=== PATIENT | female | born 1965 | race American Indian/Alaskan Native ===

== ENCOUNTER 2018-02-07 12:14 | Emergency (ER) | payer OTHER ==
[2018-02-07 12:49] VITALS: O2SAT 98
[2018-02-07 12:50] VITALS: BMI 27.4
[2018-02-07 13:35] VITALS: RESP 18
[2018-02-07] MEDS ORDERED: Tdap Vaccine 0.5 ml Vial (10-64 yrs) IM ONE ×2 (13:39→13:43)
[2018-02-07] MEDS ORDERED: PROPARACAINE/FLUORESCEIN SOD 100 DROP/5 ML BOTTLE OD STA (13:47)
[2018-02-07] MEDS ORDERED: PROPARACAINE/FLUORESCEIN SOD 100 DROP/5 ML BOTTLE ONE (14:01)
--- NOTE | 2018-02-07 14:53 | ED PDOC ---
HPI: Eye Injury/Pain Time Seen by Provider: 02/07/18 13:14 Chief Complaint (Nursing): Eye Problem Chief Complaint (Provider): Eye problem History Per: Patient History/Exam Limitations: no limitations Onset/Duration Of Symptoms: Days (3x weeks) Current Symptoms Are (Timing): Still Present Severity: Moderate Wears Contact Lens?: No Associated Symptoms: Pain (pain of skin around eye, no eye pain), Swelling, Itching, Discharge From Eye. denies: Decreased Vision Additional Complaint(s): 52 year old female with a past medical history of anxiety presents to the ED for an evaluation of right eye irritation that has been ongoing for 3x weeks. Patient reports the symptoms initially started with itching, redness, and tearing, but have progressively worsened since. Patient reports that she saw an opthalmologist 4x days ago (Dr. Moses Mccain, [facility]) where she had an exam and was diagnosed with conjunctivitis and prescribed acyclovir tablets, which she has been compliant with but reports no improvement of symptoms. Persistence of symptoms prompted evaluation at [facility] today. Patient was again diagnosed with conjunctivitis and was prescribed Keflex tablets and Ocuflux eye drops, but has not filled them yet. Patient was concerned for an inaccurate diagnoses which is what prompted her ED visit today. Patient denies having any fevers, foreign body sensation, visual changes, seeing halos, contact use, pain with eye movement, headaches, dizziness, abdominal pain, nausea, v omiting. Patient reports the eye is not painful, but the skin around the eye is swollen and is 4/10 pain level. Patient notes the eye is continuously crusted with mucous discharge since onset of symptoms. Patient does wear glasses. Patient's last period: today. Patient's tetanus is not up to date. PMD: Perez Alonzo Past Medical History Reviewed: Historical Data, Nursing Documentation, Vital Signs Vital Signs: Last Vital Signs Temp 98.0 F 02/07/18 13:26 Pulse 72 02/07/18 13:26 Resp 18 02/07/18 13:26 BP 141/91 H 02/07/18 13:26 Pulse Ox 98 02/07/18 13:26 - Medical History PMH: Anxiety, Back Problems, HTN - Surgical History Surgical History: No Surg Hx - Family History Family History: States: No Known Family Hx - Social History Current smoker - smoking cessation education provided: No Alcohol: None Drugs: Denies - Home Medications Home Medications: Ambulatory Orders Medication Instructions Recorded RX: Naproxen 500 mg PO BID PRN #20 tab 02/07/18 - Allergies Allergies/Adverse Reactions: Allergies Allergy/AdvReac Type Severity Reaction Status Date / Time hay fever Allergy ITCHING Uncoded 02/07/18 13:35 Review of Systems ROS Statement: Except As Marked, All Systems Reviewed And Found Negative Constitutional: Negative for: Fever Eyes: Positive for: Pain (pain and swelling of skin around eye. itchiness, tearing, mucous discharge, crusting), Redness. Negative for: Vision Change ((-) seeing halos) Gastrointestinal: Negative for: Vomiting, Abdominal Pain Neurological: Negative for: Headache, Dizziness Physical Exam - Reviewed Nursing Documentation Reviewed: Yes Vital Signs Reviewed: Yes - Physical Exam Comments: GENERAL APPEARANCE: Patient is awake, alert, oriented x 3, resting comfortably, in no acute distress. HENMT: (-) facial erythema, (-) facial blisters. Ear Canals: (+) patent (-) cerumen impaction, (-) exudate. TMs: (-) bulging and (-) erythema, (-)effusion, (-) perforation,(-) vesicles. Frontal / maxillary sinuses: (-) tenderness. Nares patent (-) rhinorrhea, (-) vesicular rash to tip of nose. (-) TMJ tenderness. Pharynx: Clear; uvula midline (-) erythema, (-) exudate. Airway patent: (-) stridor. LIDS & LASHES: Right eye orbit (+) painless edema (-) erythema, (-) warmth. (+) increased tearing, mucous discharge (green) to bilateral canthus of right eye. (+) crusting of eyelashes. LEFT EYE: unremarkable PUPILS: Pupils equal, round, reactive to light EOM's: Intact and painless. CONJUNCTIVAE: (+) diffuse injection of right eye. ANTERIOR CHAMBER: (-) hyphema. (-) chemosis. FLUOROSCEIN: (-) uptake CHEST AND RESPIRATORY: (-) rales, (-) rhonchi, (-) wheezes; breath sounds equal bilaterally. Respirations even and nonlabored, speaking in full sentences. HEART AND CARDIOVASCULAR: (-) irregularity NECK: Supple, FROM - Laboratory Results Result Diagrams: 02/07/18 14:38 02/07/18 14:38 Urine POC: Negative - ECG O2 Sat by Pulse Oximetry: 98 (RA) Pulse Ox Interpretation: Normal Medical Decision Making Medical Decision Makin:14 Clinical impression: 52 year old female with right eye irritation, orbital swelling, rule out periorbital cellulitis. Plan: * CT orbits/facial w/o contrast * BMP * CBC * test * blood culture * wound culture * tetanus 0.5 ml IM * flucaine eye drops 1 drop OD * keflex 500 mg PO * toradol 30 mg IM * Re-evaluation Visual Acuity (without glasses): R: 20/30 L: 20/30 Both: 20/30 Labs reviewed, (-) leukocytosis 14:51 CT orbits/facial read and reviewed by radiologists FINDINGS: The current study reveals mild right periorbital infiltration/soft tissue swelling consistent with an orbital cellulitis. No definitive evidence of postseptal extension is identified.. Some minimal extension into the right lateral periorbital soft tissues. Globes intact and lends appropriately located. The there are no retrobulbar masses or collections. Optic nerves and extraocular musculature appear unremarkable. The left orbit and contents unremarkable. The visualized frontal sinuses are hypoplastic. Remaining visualized paranasal sinuses are well-developed and currently well-aerated. No fluid levels seen to suggest acute sinusitis. Minimal mucosal thickening noted within the sphenoid sinus however the paranasal sinuses are otherwise clear. There are no bony sclerotic or scar destructive changes. IMPRESSION: Findings consistent with a right-sided the periorbital cellulitis. No definitive radiographic evidence of postseptal extension as described. 15:05 Consult placed with . Awaiting callback. 15:30 Repeat BP: 125/[address] Mccain, who recommends patient fill Rx from urgent care visit earlier today for Keflex PO and Ocuflox drops and to continue taking prescribed acyclovir from his office visit. Dr Mccain agrees no further treatment is required in ED and he will see the patient in office this week. On re-evaluation, patient reports improvement of symptoms. On exam, patient remains AAOx3, in no acute distress. Lungs clear to auscultation, cardiac RRR, repeat neuro exam shows no focal findings. Vitals stable. Lab/Diagnostic results d/w the patient in great detail. Diagnosis of anum- orbital cellulitis d/w the patient. Based on history, exam and diagnostic results, plan will be for outpatient follow up with ophtho. Patient requesting ophtho referral. Patient instructed to follow-up with pmd / referral provided / the clinic in 1- 2 days without fail. Advised to take medication as prescribed. Return to the emergency room at any time for any new or worsening symptoms. Patient states she fully agrees with and understands discharge instructions. States that she agrees with the plan and disposition. Verbalized and repeated discharge instructions and plan. I have given the patient opportunity to ask any additional questions. Scribe Attestation: Documented by Jenna Funez, acting as a scribe for Jenna Medina. Provider Scribe Attestation: All medical record entries made by the Scribe were at my direction and personally dictated by me. I have reviewed the chart and agree that the record accurately reflects my personal performance of the history, physical exam, medical decision making, and the department course for this patient. I have also personally directed, reviewed, and agree with the discharge instructions and disposition. Disposition - Clinical Impression Clinical Impression: Periorbital cellulitis of right eye, Edema of right orbit - Patient ED Disposition Is Patient to be Admitted: No Counseled Patient/Family Regarding: Studies Performed, Diagnosis, Need For Followup, Rx Given - Disposition Referrals: Fredis Neumann MD [Staff Provider] - Disposition: Routine/Home Disposition Time: 15:50 Condition: STABLE Additional Instructions: FOLLOW UP WITH OPHTHO SOON POSSIBLE. TAKE PRESCRIBED EYE DROPS, KEFLEX, AND ACYCLOVIR DIRECTED. The emergency medical care you received today was directed at your acute symptoms. If you were prescribed any medication, please fill it and take as directed. It may take several days for your symptoms to resolve. Return to the Emergency Department if your symptoms worsen, do not improve, or if you have any other problems. Please contact your doctor in 2 days for re-evaluation and follow up / or call one of the physicians/clinics you have been referred to that are listed on the Patient Visit Information form that is included in your discharge packet. Bring any paperwork you were given at discharge with you along with any medications you are taking to your follow up visit. Our treatment cannot replace ongoing medical care by a primary care provider (PCP) outside of the emergency department. Prescriptions: RX: Naproxen 500 mg PO BID PRN #20 tab PRN Reason: PAIN/INFLAMMATION Instructions: Orbital Cellulitis Forms: [employer] ([place]guillan) Print Language: JAPANESE - POA Present On Arrival: None Results - Lab Results Lab Results: 02/07/18 02/07/18 14:38 14:38 WBC 7.8 RBC 4.47 Hgb 13.6 Hct 41.5 MCV 92.7 MCH 30.3 MCHC 32.7 L RDW 13.3 Plt Count 317 MPV 7.6 Neut % (Auto) 70.9 Lymph % (Auto) 18.8 L Alexander % (Auto) 7.9 Eos % (Auto) 1.5 Baso % (Auto) 0.9 Neut # (Auto) 5.5 Lymph # (Auto) 1.5 Alexander # (Auto) 0.6 Eos # (Auto) 0.1 Baso # (Auto) 0.1 Sodium 140 Potassium 3.7 Chloride 103 Carbon Dioxide 31 H Anion Gap 10 BUN 15 Creatinine 0.5 L Est GFR ( Amer) > 60 Est GFR (Non-Af Amer) > 60 Random Glucose 97 Calcium 9.3
--- NOTE | 2018-02-07 14:55 | CT ---
Date of service: 02/07/2018. HISTORY: Right orbital swelling r/o cellulitis. COMPARISON: None. TECHNIQUE: Contiguous helical/transaxial sections of the orbits were obtained. Coronal and sagittal reformats were generated. Radiation dose: Total exam DLP = 668.69 mGy-cm. This CT exam was performed using one or more of the following dose reduction techniques: Automated exposure control, adjustment of the mA and/or kV according to patient size, and/or use of iterative reconstruction technique. FINDINGS: The current study reveals mild right periorbital infiltration/soft tissue swelling consistent with an orbital cellulitis. No definitive evidence of postseptal extension is identified.. Some minimal extension into the right lateral periorbital soft tissues. Globes intact and lends appropriately located. The there are no retrobulbar masses or collections. Optic nerves and extraocular musculature appear unremarkable. The left orbit and contents unremarkable. The visualized frontal sinuses are hypoplastic. Remaining visualized paranasal sinuses are well-developed and currently well-aerated. No fluid levels seen to suggest acute sinusitis. Minimal mucosal thickening noted within the sphenoid sinus however the paranasal sinuses are otherwise clear. There are no bony sclerotic or scar destructive changes. IMPRESSION: Findings consistent with a right-sided the periorbital cellulitis. No definitive radiographic evidence of postseptal extension as described.
[2018-02-07 14:58] LABS: BASO # 0.1 K/uL (0.0-0.2); BASO % 0.9 % (0.0-2.0); EOS # 0.1 K/uL (0.0-0.7); EOS % 1.5 % (0.0-4.0); HEMOGLOBIN 13.6 g/dL (12.0-16.0); LYMPH # 1.5 K/uL (1.0-4.3); LYMPH % 18.8 % (20.0-40.0); MEAN CELL VOLUME 92.7 fl (81.0-99.0); MEAN CORPUSCULAR HEMOGLOBIN 30.3 pg (27.0-31.0); MEAN CORPUSCULAR HGB CONC 32.7 g/dL (33.0-37.0); MEAN PLATELET VOLUME 7.6 fl (7.2-11.7); MONO # 0.6 K/uL (0.0-0.8); MONO % 7.9 % (0.0-10.0); NEUT # 5.5 K/uL (1.8-7.0); NEUT % 70.9 % (50.0-75.0); RBC 4.47 Mil/uL (3.80-5.20); RED CELL DISTRIBUTION WIDTH 13.3 % (11.5-14.5); WHITE BLOOD COUNT 7.8 K/uL (4.8-10.8)
[2018-02-07 15:23] LABS: BLOOD UREA NITROGEN 15 mg/dl (7-17); CALCIUM 9.3 mg/dL (8.4-10.2); GFR NON-AFRICAN AMERICAN > 60
[2018-02-07 16:05] VITALS: BP 125/83; PULSE 58; TEMP 98.3
== END 2018-02-07 16:08 | disposition home or self-care (01) ==
LOC: H.ER 12:14
DX: L03.213 Periorbital cellulitis (principal); H05.221 Edema of right orbit; I10 Essential (primary) hypertension; Z86.59 Personal history of other mental and behavioral disorders; Z23 Encounter for immunization
CPT/HCPCS: 70480; 80048; 81025; 85025; 87040; 87070; 90471; 90715; 96374; 99284; J1885